=== PATIENT | female | born 2000 | race Caucasian/White ===

== ENCOUNTER 2022-07-30 18:52 | Emergency (ER) | payer SELFPAY ==
--- NOTE | 2022-07-30 18:54 | ED.EXTPRO ---
HPI - Extremity Problem General Chief complaint: Extremity Problem,Nontraumatic Stated complaint: growth on lt ankle Time Seen by Provider: 07/30/22 18:54 Source: patient Mode of arrival: ambulatory Limitations: no limitations History of Present Illness HPI Narrative: Veronique is a 21-year-old female patient presenting to the clinic today with complaints of a possible growth on her left ankle. She reports she 1st noticed the growth approximately 1 year ago. States the growth has not changed however the skin near the growth has become raised and has gone down. States that a year ago they thought that she may have had a spider bite. She denies any pain, swelling, or erythema to the site. Related Data Home Medications Medication Instructions Recorded Confirmed montelukast 10 mg tablet 10 mg PO DAILY 07/30/22 07/30/22 norgestimate 0.25 mg-ethinyl 1 tablet PO DAILY 07/30/22 07/30/22 estradiol 35 mcg tablet (Estarylla) sertraline 50 mg tablet 50 mg PO DAILY 07/30/22 07/30/22 Allergies Allergy/AdvReac Type Severity Reaction Status Date / Time No Known Allergies Allergy Verified 07/30/22 19:02 Review of Systems Review of Systems: Pertinent positives per HPI. Patient denies any fever, chills, rash, headache, visual changes, dizziness, cough, runny nose, sore throat, shortness of breath, chest pain, palpitations, nausea, vomiting, diarrhea, constipation, abdominal pain, or any urinary issues. PMFSH Comments At the time of my signature, I reviewed and agree with the nursing past medical, surgical, social, and family history. There is no relevant family history pertinent to the patient complaint. Exam Narrative: General: Well-developed, well nourished, in no apparent distress Head: Normocephalic, atraumatic. Cardio: Regular rate and rhythm, s1 and s2 normal, no murmur appreciated. Resp: Clear to auscultation bilaterally, no rhonchi, rales, wheezing or rubs. Integumentary: [place], warm, and dry, intact without lesion, circular lesion/skin changes the size of a tennis ball to the left lateral ankle-nontender to palpation, no induration, no erythema, or swelling noted, has a small cyst-like movable mass under the skin to the posterior lateral distal fibula Course Course Emergency Course: Portions of this record may have been created with voice recognition software. Level of Care: Express Care Visit Vital Signs Vital signs: Vital signs reviewed MDM - Extremity (Nontraumatic) MDM Narrative Medical decision making narrative: At the time of visit patient is resting comfortably on the exam table. Recommend Dermatology referral for further evaluation of skin anomaly and small possible cyst under the skin of the left ankle. Supportive measures were discussed with the patient she voiced understanding of discharge instructions agrees to treatment plan. Differential Diagnosis Differential diagnosis: Likely other (Superficial mass, cellulitis, skin cancer) Discharge Plan Discharge Clinical Impression: Mass of subcutaneous tissue, Skin abnormality Patient Disposition: Home, Self-Care Condition: Stable Instructions: Antibiotic Form, Soft Tissue Mass (ED) Additional Instructions: Recommend referral to Dermatology to evaluate Follow-up with PCP as needed Dr. Toledo -[employer] and [facility] office numbers were given to you. Call to make an appointment on Tuesday when the office opens Prescriptions: No Action norgestimate-ethinyl estradiol [Estarylla] 0.25-35 mg-mcg tablet 1 tablet PO DAILY montelukast 10 mg tablet 10 mg PO DAILY sertraline 50 mg tablet 50 mg PO DAILY Follow-up/Referrals: PHYSICIAN NOT ON STAFF,NONSTAFF [Primary Care Provider] - Time of Disposition: 19:12 Quality NIHSS Nursing Documentation ED NIHSS nursing documentation: reviewed/agree
[2022-07-30 19:03] VITALS: BP 131/88; PULSE 74; RESP 16; TEMP 36.9; O2SAT 100
== END 2022-07-30 19:16 | disposition home or self-care (01) ==
PROVIDERS: Emergency Provider Nurse Practitioner Family
DX: R22.42 Localized swelling, mass and lump, left lower limb (principal); L98.9 Disorder of the skin and subcutaneous tissue, unspecified; I44.0 Atrioventricular block, first degree
CPT/HCPCS: 99211; G0463

== ENCOUNTER 2022-09-04 11:10 | Emergency (ER) | payer OTHER, SELFPAY ==
[2022-09-04 12:28] VITALS: BP 125/92; PULSE 78; RESP 16; TEMP 36.9; O2SAT 100
--- NOTE | 2022-09-04 13:01 | ED.URI ---
HPI - URI/Sore Throat General Chief Complaint: Upper Respiratory Infection Stated Complaint: head pain,kaylene,nausea,vomiting History of Present Illness HPI Narrative: 21-year-old female presents to the [facility] today complaining of upper respiratory symptoms. patient stated that her symptoms have been going on for about 1 month. Patient stated started with congestion and a sore throat with a cough that got a little better and then progressively got worse. Patient states having congestion, nausea, intermittent vomiting, sinus pressure, ear fullness, and a cough. Patient also states that she has pain with deep inspiration and feels like her chest is tight. Patient states she has stop smoking weed to see if that would help with her symptoms. Patient is a taking TheraFlu for symptom management without relief. Patient states she can not hear out of her right ear. Patient believes she might have had fevers but she has not been checking it with a thermometer. Related Data Home Medications Medication Instructions Recorded Confirmed montelukast 10 mg tablet 10 mg PO DAILY 07/30/22 09/04/22 norgestimate 0.25 mg-ethinyl 1 tablet PO DAILY 07/30/22 09/04/22 estradiol 35 mcg tablet (Estarylla) sertraline 50 mg tablet 50 mg PO DAILY 07/30/22 09/04/22 Allergies Allergy/AdvReac Type Severity Reaction Status Date / Time No Known Allergies Allergy Verified 09/04/22 12:28 Review of Systems Review of Systems: CONSTITUTIONAL: Positive for fevers. negative for chills or body aches. EYES: Denies visual changes, redness, or discharge. ENT: Positive for ear fullness, neck sinus pressure, nasal congestion, sore throat. CARDIOVASCULAR: Positive for chest tightness. Denies any palpitations or edema. RESPIRATORY: Positive for cough. Negative for dyspnea. GASTROINTESTINAL: positive for nausea and vomiting. Negative for diarrhea and abdominal pain GENITOURINARY: Denies dysuria or hematuria. SKIN: Denies rash or itching. MUSCULOSKELETAL: Denies back pain, joint pain, or myalgia. NEUROLOGIC: Positive for headaches. Negative for numbness or weakness. Pertinent positives per HPI. PMFSH Comments At the time of my signature, I reviewed and agree with the nursing past medical, surgical, social, and family history. There is no relevant family history pertinent to the patient complaint. Exam Narrative: GENERAL: This is a well-nourished, well-developed patient, in no apparent distress. HEAD: normocephalic, atraumatic. EYES: Sclera clear/white. Vision is grossly intact. EARS: External ears normal, auditory canals clear and without drainage, TMs normal without perforation. Hearing grossly intact. Bilateral effusions is noted posterior to the TMs. NOSE: External nose normal with purulence nasal discharge and mild erythema to the nares. THROAT: Mucous membranes moist, posterior pharynx with mild erythema with no exudate present. NECK: Neck supple, non-tender without lymphadenopathy, masses or thyromegaly. CARDIOVASCULAR: Regular rate and rhythm without murmurs, gallops, or rubs. RESPIRATORY: Clear to auscultation. Breath sounds equal bilaterally. No wheezes, rales, or rhonchi. GASTROINTESTINAL: Abdomen soft, non-tender, nondistended. Bowel sounds are active. No hepato-splenomegaly, or palpable masses. No guarding. SKIN: warm, intact with no suspicious lesions or rash, good texture and turgor. NEURO: awake, alert, and oriented to person, place and time. There were no obvious focal neurologic abnormalities. EXTREMITIES: No clubbing, cyanosis, or edema. No joint tenderness, effusion, or edema noted. BACK: Nontender without deformity or crepitus. No flank tenderness. Course Course Level of Care: Express Care Visit Vital Signs Vital signs: Vital Signs Temperature 98.4 F 09/04/22 12:28 Pulse Rate 78 09/04/22 12:28 Respiratory Rate 16 09/04/22 12:28 Blood Pressure 125/92 H 09/04/22 12:28 Pulse Oximetry 10
== END 2022-09-04 13:07 | disposition home or self-care (01) ==
PROVIDERS: Emergency Provider Nurse Practitioner Family
DX: J32.9 Chronic sinusitis, unspecified (principal)
CPT/HCPCS: 99213; G0463